=== PATIENT | male | born 1970 | race Caucasian/White ===

== ENCOUNTER → 2022-10-15 | Outpatient (CLI) | payer SELFPAY ==
[~2022-10-15] MED LIST: BENTYL20 MG PO; CELEXA20 MG PO; EES400 MG PO; VICODIN 500 MG-1 TAB PO
== END | disposition home or self-care (01) ==
LOC: RESCLI 09:56
PROVIDERS: ATTEND Internal Medicine
DX: E11.9 Type 2 diabetes mellitus without complications (principal); F39 Unspecified mood [affective] disorder; M72.0 Palmar fascial fibromatosis [Dupuytren]; M75.00 Adhesive capsulitis of unspecified shoulder; Z98.890 Other specified postprocedural states; Z79.899 Other long term (current) drug therapy

== ENCOUNTER → 2023-11-23 | Outpatient (CLI) | payer MEDICARE | END | disposition home or self-care (01) | LOC: RESCLI 02:19 | PROVIDERS: ATTEND Internal Medicine | DX: E11.9 Type 2 diabetes mellitus without complications (principal); F39 Unspecified mood [affective] disorder; M75.00 Adhesive capsulitis of unspecified shoulder; Z98.890 Other specified postprocedural states; Z90.49 Acquired absence of other specified parts of digestive tract; Z79.899 Other long term (current) drug therapy ==